=== PATIENT | male | born 2000 | race African-American/Black ===

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

== ENCOUNTER 2020-05-09 20:06 | Emergency (ER) | payer SELFPAY ==
[~2020-05-09] VITALS: Ht 177.8 cm; Wt 109.0 kg
[2020-05-09 22:03] LABS: BASOPHILS % 0.6 % (0.0-2.0); EOSINOPHILS % 4.3 % (0.0-5.0); HEMATOCRIT. 44.8 % (42.0-52.0); HEMOGLOBIN. 14.7 g/dL (14.0-18.0); LYMPHOCYTES % 34.2 % (20.0-50.0); MEAN CORPUSCULAR HEMOGLOBIN 27.8 pg (28.0-32.0); MEAN CORPUSCULAR VOLUME 84.5 fL (80.0-94.0); MEAN PLATELET VOLUME 9.5 fl (7.4-10.4); MONOCYTES % 5.6 % (2.0-8.0); NEUTROPHILS % 55.3 % (40.0-76.0); PLATELET 224 x1000/uL (130-400); RED CELL DISTRIBUTION WIDTH 13.6 % (11.6-14.6)
[2020-05-09 22:08] LABS: CHLORIDE 108 mEq/L (98-107)
[2020-05-09 22:14] LABS: CLARITY URINE CLEAR (CLEAR); COLOR URINE YELLOW (YELLOW); KETONES URINE TRACE (NEGATIVE); LEUKOCYTE ESTERASE URINE NEGATIVE (NEGATIVE); NITRITE URINE NEGATIVE (NEGATIVE); OCCULT BLOOD URINE NEGATIVE (NEGATIVE); PROTEIN URINE NEGATIVE (NEGATIVE); SPECIFIC GRAVITY URINE 1.034 (1.005-1.030)
[2020-05-09] MEDS ORDERED: MORPHINE SULFATE 4 MG/ML CPJ (NOT FOR IM USE) IV STA (22:54)
[2020-05-09] MEDS ORDERED: ONDANSETRON HCL 4MG/2ML INJ IV STA (22:54)
[2020-05-09] MEDS ORDERED: SODIUM CHLORIDE 0.9% 1,000 ML IV ONE (23:00)
[2020-05-09 23:13] LABS: INR 1.1; PARTIAL THROMBOPLASTIN TIME 25.2 sec (23.4-31.0); PROTHROMBIN TIME 11.4 sec (9.6-11.0)
[2020-05-10] MEDS ORDERED: HYDR-4001 MT (00:47)
[2020-05-10] MEDS ORDERED: IBUP-2028 MT (00:47)
[2020-05-10 01:56] VITALS: BP 118/64
[2020-05-12 08:11] LABS: NEISSERIA GONORRHOEAE NAA Negative (Negative)
== END 2020-05-10 02:02 | disposition home or self-care (01) ==
LOC: ER 20:06
DX: N44.00 Torsion of testis, unspecified (principal); J45.909 Unspecified asthma, uncomplicated; Z91.010 Allergy to peanuts; Z91.013 Allergy to seafood
CPT/HCPCS: 36415; 76870; 80053; 81003; 85025; 85610; 85730; 86850; 86900; 86901; 87491; 87591; 93005; 93976; 96374; 96375; 99285; J2270; J2405; J7030

== ENCOUNTER 2020-12-23 19:19 | Emergency (ER) | payer SELFPAY ==
[~2020-12-23] VITALS: Ht 170.2 cm; Wt 80.0 kg
[~2020-12-23 19:19] MED LIST: HYDR-4001 MT; IBUP-2028 MT
[2020-12-24 00:57] LABS: BASOPHILS % 0.5 % (0.0-2.0); EOSINOPHILS % 0.2 % (0.0-5.0); HEMOGLOBIN. 16.4 g/dL (14.0-18.0); LYMPHOCYTES % 13.7 % (20.0-50.0); MEAN CORPUSCULAR HEMOGLOBIN 28.6 pg (28.0-32.0); MEAN CORPUSCULAR VOLUME 85.5 fL (80.0-94.0); MEAN PLATELET VOLUME 9.7 fl (7.4-10.4); MONOCYTES % 7.7 % (2.0-8.0); NEUTROPHILS % 77.9 % (40.0-76.0); PLATELET 253 x1000/uL (130-400); RED BLOOD CELL COUNT 5.73 mill/uL (4.7-6.1); RED CELL DISTRIBUTION WIDTH 13.4 % (11.6-14.6)
[2020-12-24 01:09] LABS: CHLORIDE 103 mEq/L (98-107)
[2020-12-24] MEDS ORDERED: ONDANSETRON 4MG ODT PO STA (01:45)
[2020-12-24] MEDS ORDERED: DICYCLOMINE 10 MG/5 ML ORAL SYR PO STA (01:45)
[2020-12-24] MEDS ORDERED: MAGNESIUM/ALUMINUM HYDROXIDE/SIMETHICONE 30ML UDC PO STA (01:45)
[2020-12-24 02:13] LABS: CLARITY URINE CLOUDY (CLEAR); COLOR URINE DARK YELLOW (YELLOW); KETONES URINE 2+ (NEGATIVE); LEUKOCYTE ESTERASE URINE NEGATIVE (NEGATIVE); NITRITE URINE NEGATIVE (NEGATIVE); OCCULT BLOOD URINE NEGATIVE (NEGATIVE); PH URINE 5.5 (4.5-8.0); PROTEIN URINE 1+ (NEGATIVE); SPECIFIC GRAVITY URINE 1.037 (1.005-1.030)
[2020-12-24] MEDS ORDERED: ONDANSETRON HCL 4MG/2ML INJ IV STA (02:23)
[2020-12-24] MEDS ORDERED: KETOROLAC 30MG/ML VIAL IV STA (02:23)
[2020-12-24] MEDS ORDERED: SODIUM CHLORIDE 0.9% 1,000 ML IV ONE (02:30)
[2020-12-24 02:35] VITALS: BP 137/82
[2020-12-24] MEDS ORDERED: METOCLOPRAMIDE HCL 10MG/2ML VIAL IV ONE (04:15)
[2020-12-24] MEDS ORDERED: ONDA4TAB5 MT (05:39)
== END 2020-12-24 05:50 | disposition home or self-care (01) ==
LOC: ER 19:19
DX: R10.33 Periumbilical pain (principal); R11.2 Nausea with vomiting, unspecified; Z79.899 Other long term (current) drug therapy; Z91.010 Allergy to peanuts
CPT/HCPCS: 36415; 71045; 74176; 80053; 81003; 83690; 85025; 96361; 96374; 96375; 99285; J1885; J2405; J2765; J7030; Q0162

== ENCOUNTER 2023-03-22 16:47 | Emergency (ER) | payer SELFPAY ==
[~2023-03-22] VITALS: Ht 175.3 cm; Wt 99.0 kg
[~2023-03-22 16:47] MED LIST changes: +ONDA4TAB5 MT
[2023-03-22 16:51] VITALS: O2SAT 100
[2023-03-22 17:28] LABS: CLARITY URINE CLOUDY (CLEAR); COLOR URINE YELLOW (YELLOW); GLUCOSE URINE NEGATIVE (NEGATIVE); KETONES URINE NEGATIVE (NEGATIVE); LEUKOCYTE ESTERASE URINE NEGATIVE (NEGATIVE); NITRITE URINE NEGATIVE (NEGATIVE); OCCULT BLOOD URINE NEGATIVE (NEGATIVE); PH URINE 5.5 (4.5-8.0); PROTEIN URINE NEGATIVE (NEGATIVE); SPECIFIC GRAVITY URINE 1.027 (1.005-1.030)
[2023-03-22 17:48] LABS: RBC URINE NONE SEEN /hpf (0-2); WBC URINE 0-2 /hpf (0-2)
[2023-03-22 17:49] LABS: BACTERIA URINE NONE SEEN; SQUAMOUS EPITHELIAL CELL URINE RARE /lpf (RARE/1+)
[2023-03-22 18:03] LABS: BASOPHILS % 0.3 % (0.0-2.0); EOSINOPHILS % 0.7 % (0.0-5.0); HEMATOCRIT. 44.9 % (42.0-52.0); HEMOGLOBIN. 14.8 g/dL (14.0-18.0); LYMPHOCYTES % 11.5 % (20.0-50.0); MEAN CORPUSCULAR HEMOGLOBIN 29.4 pg (28.0-32.0); MEAN CORPUSCULAR VOLUME 89.1 fL (80.0-94.0); MEAN PLATELET VOLUME 9.8 fl (7.4-10.4); MONOCYTES % 3.3 % (2.0-8.0); NEUTROPHILS % 84.2 % (40.0-76.0); PLATELET 210 x1000/uL (130-400); RED BLOOD CELL COUNT 5.04 mill/uL (4.7-6.1); RED CELL DISTRIBUTION WIDTH 14.8 % (11.6-14.6); WHITE BLOOD COUNT 6.4 x1000/uL (4.5-11.0)
[2023-03-22 18:14] LABS: ALANINE AMINOTRANSFERASE 20 IU/L (10-49); ALBUMIN 4.7 g/dL (3.2-4.8); ASPARTATE AMINOTRANSFERASE 19 IU/L (<34); BILIRUBIN TOTAL 0.4 mg/dL (0.1-1.0); CALCIUM 9.3 mg/dL (8.7-10.4); CARBON DIOXIDE 26 mEq/L (21-32); CHLORIDE 108 mEq/L (98-107); CREATININE 0.7 mg/dL (0.6-1.3); GLUCOSE 82 mg/dL (70-105); POTASSIUM 3.9 mEq/L (3.5-5.1); PROTEIN TOTAL 8.3 g/dL (6.0-8.3); SODIUM 141 mEq/L (136-145); UREA NITROGEN BLOOD 12 mg/dL (9-23)
[2023-03-22] MEDS ORDERED: FAMOTIDINE 20MG/2ML VIAL IV ONE (20:30)
[2023-03-22] MEDS ORDERED: ONDANSETRON HCL 4MG/2ML INJ IV ONE (20:30)
[2023-03-22] MEDS: SODIUM CHLORIDE 0.9% 1,000 ML IV ONE (20:30)
[2023-03-22] MEDS ORDERED: KETOROLAC 30MG/ML VIAL IV STA (20:30)
[2023-03-23 03:03] VITALS: BP 127/79; PULSE 60; RESP 20
[2023-03-23] MEDS: FAMOTIDINE 20MG/2ML VIAL IV NR (03:03)
[2023-03-23] MEDS: ONDANSETRON HCL 4MG/2ML INJ IV NR (03:03)
[2023-03-23] MEDS: KETOROLAC 30MG/ML VIAL IV NR (03:03)
[2023-03-23] MEDS ORDERED: FAMO20TA8 MT (03:27)
[2023-03-23] MEDS ORDERED: ONDA4TAB50 MT (03:27)
[2023-03-23] MEDS ORDERED: ACET-2708 MT (03:27)
== END 2023-03-23 04:04 | disposition home or self-care (01) ==
LOC: ER 16:47
DX: K29.00 Acute gastritis without bleeding (principal); Z91.013 Allergy to seafood; Z91.018 Allergy to other foods; Z88.8 Allergy status to other drugs, medicaments and biological substances
CPT/HCPCS: 99284; 96361; 80053; 81003; 83690; 85025; 36415; 96374; 96375; J7030; J1885; J2405

== ENCOUNTER 2023-03-28 03:56 | Emergency (ER) | payer SELFPAY ==
[~2023-03-28] VITALS: Ht 177.8 cm; Wt 70.0 kg
[~2023-03-28 03:56] MED LIST changes: +ACET-2708 MT; +FAMO20TA8 MT; +ONDA4TAB50 MT
[2023-03-28 03:59] VITALS: BP 156/110; PULSE 51; RESP 16; TEMP 98.5; O2SAT 98
== END 2023-03-28 07:30 | disposition left against medical advice (07) ==
LOC: ER 03:56
DX: R11.2 Nausea with vomiting, unspecified (principal); Z53.21 Procedure and treatment not carried out due to patient leaving prior to being seen by health care provider
CPT/HCPCS: 99281

== ENCOUNTER 2023-11-30 00:14 | Emergency (ER) | payer SELFPAY ==
[~2023-11-30] VITALS: Ht 175.3 cm; Wt 98.0 kg
[2023-11-30 02:22] VITALS: PULSE 106; RESP 20; O2SAT 91
[2023-11-30] MEDS: IPRATROPIUM/ALBUTEROL 0.5-3(2.5)MG/3ML NEB HHN ONE ×2 (02:22→04:25)
[2023-11-30] MEDS: DEXAMETHASONE 10 MG/ML VIAL IM ONE (02:30)
[2023-11-30 04:25] VITALS: PULSE 85; RESP 18; O2SAT 96
[2023-11-30 04:30] VITALS: BP 118/76; PULSE 92; RESP 17; TEMP 36.83628; O2SAT 100
[2023-11-30] MEDS ORDERED: ALBU90AE INH (04:36)
[2023-11-30] MEDS ORDERED: PRED5TAB48 MT (04:36)
== END 2023-11-30 07:15 | disposition home or self-care (01) ==
LOC: ER 00:14
DX: J45.901 Unspecified asthma with (acute) exacerbation (principal); B34.9 Viral infection, unspecified; Z79.899 Other long term (current) drug therapy
CPT/HCPCS: 71045; 94640; 96372; 99283; J1100; Z7610 ×2

== ENCOUNTER 2023-12-18 09:15 | Emergency (ER) | payer MEDICAID ==
[~2023-12-18] VITALS: Ht 172.7 cm; Wt 99.0 kg
[2023-12-18] VITALS (7 sets, daily range): BP systolic 142; BP diastolic 83; PULSE 85–93; RESP 16–20; TEMP 36.22512; O2SAT 95–98
[~2023-12-18 09:15] MED LIST changes: +ALBU90AE INH; +PRED5TAB48 MT
[2023-12-18] MEDS ORDERED: IPRATROPIUM BROMIDE (0.02%) 0.5MG/2.5ML NEB HHN STA (09:56)
[2023-12-18] MEDS ORDERED: DEXAMETHASONE 1MG TABLET PO ONE (10:00)
[2023-12-18] MEDS: ALBUTEROL (0.083%) 2.5MG/3ML NEB HHN SCH (10:23)
[2023-12-18] MEDS: IPRATROPIUM BROMIDE (0.02%) 0.5MG/2.5ML NEB HHN NR (10:23)
[2023-12-18] MEDS ORDERED: ALBU90AE INH (11:45)
[2023-12-18] MEDS: ALBUTEROL (0.5%) 2.5MG/0.5ML NEB HHN ONE (13:26)
[2023-12-18] MEDS: DEXAMETHASONE 4MG TABLET PO NR (15:09)
== END 2023-12-18 15:14 | disposition home or self-care (01) ==
LOC: ER 09:31
DX: J45.901 Unspecified asthma with (acute) exacerbation (principal); Z79.899 Other long term (current) drug therapy
CPT/HCPCS: 71045; 94640; 99291; J8540; Z7610

== ENCOUNTER 2024-03-06 06:44 | Emergency (ER) | payer MEDICAID ==
[~2024-03-06] VITALS: Ht 175.3 cm; Wt 95.0 kg
[2024-03-06 06:52] VITALS: O2SAT 93
[2024-03-06 06:55] VITALS: BP 160/100; TEMP 98.2
[2024-03-06] MEDS ORDERED: METH4TAB95 MT (08:25)
[2024-03-06] MEDS ORDERED: ALBU90AE INH (08:25)
[2024-03-06 08:49] VITALS: PULSE 78; RESP 20; O2SAT 96
[2024-03-06] MEDS: IPRATROPIUM BROMIDE (0.02%) 0.5MG/2.5ML NEB HHN STA (08:49)
[2024-03-06] MEDS: ALBUTEROL (0.083%) 2.5MG/3ML NEB HHN STA (08:49)
[2024-03-06] MEDS: DEXAMETHASONE 4MG/ML 1ML VIAL IM ONE (08:51)
[2024-03-06 09:50] VITALS: PULSE 80; RESP 20; O2SAT 100
[2024-03-06] MEDS: IPRATROPIUM/ALBUTEROL 0.5-3(2.5)MG/3ML NEB HHN ONE (09:50)
== END 2024-03-06 10:42 | disposition home or self-care (01) ==
LOC: ER 06:44
DX: J45.901 Unspecified asthma with (acute) exacerbation (principal)
CPT/HCPCS: 71045; 94640; 94070; 96372; 99284; J1100; Z7610 ×4

== ENCOUNTER 2024-04-10 04:20 | Emergency (ER) | payer SELFPAY ==
[~2024-04-10] VITALS: Ht 177.8 cm; Wt 63.0 kg
[~2024-04-10 04:20] MED LIST changes: +METH4TAB95 MT
[2024-04-10] MEDS ORDERED: IPRATROPIUM BROMIDE (0.02%) 0.5MG/2.5ML NEB HHN SCH (06:18)
[2024-04-10] MEDS: PREDNISONE 20MG TABLET PO NR (06:18)
[2024-04-10 07:10] VITALS: PULSE 85; RESP 24; O2SAT 96
[2024-04-10] MEDS: ALBUTEROL (0.083%) 2.5MG/3ML NEB HHN SCH (07:10)
[2024-04-10] MEDS: IPRATROPIUM BROMIDE (0.02%) 0.5MG/2.5ML NEB HHN NR (07:22)
[2024-04-10] MEDS ORDERED: P50 MT (07:53)
[2024-04-10] MEDS ORDERED: ALBU90AE INH (07:53)
[2024-04-10 08:43] VITALS: BP 133/78; PULSE 104; RESP 18; TEMP 37.1; O2SAT 98
== END 2024-04-10 08:49 | disposition home or self-care (01) ==
LOC: ER 04:20
DX: J45.901 Unspecified asthma with (acute) exacerbation (principal); Z91.010 Allergy to peanuts; Z91.013 Allergy to seafood; Z79.899 Other long term (current) drug therapy
CPT/HCPCS: 71045; 94644; 99285; J7512; Z7610; 94640

== ENCOUNTER 2024-08-15 20:39 | Emergency (ER) | payer MEDICAID ==
[~2024-08-15] VITALS: Ht 182.9 cm; Wt 104.0 kg
[~2024-08-15 20:39] MED LIST changes: +P50 MT
[2024-08-15 22:25] VITALS: PULSE 78; RESP 18; O2SAT 97
[2024-08-15] MEDS: IPRATROPIUM/ALBUTEROL 0.5-3(2.5)MG/3ML NEB HHN ONE (22:30)
[2024-08-15] MEDS: METHYLPREDNISOLONE SOD SUCC 125MG/2ML (ACT-O-VIAL) IV ONE (22:41)
[2024-08-15] MEDS ORDERED: ALBU90AE INH (23:02)
[2024-08-15] MEDS ORDERED: P50 MT (23:02)
[2024-08-15 23:20] VITALS: BP 111/86; PULSE 77; RESP 18; TEMP 36.7; O2SAT 99
== END 2024-08-15 23:33 | disposition home or self-care (01) ==
LOC: ER 20:39
DX: J45.901 Unspecified asthma with (acute) exacerbation (principal); F17.210 Nicotine dependence, cigarettes, uncomplicated; F12.90 Cannabis use, unspecified, uncomplicated; Z79.899 Other long term (current) drug therapy
CPT/HCPCS: 94640; 96374; 99283; J2919; Z7610 ×3; 94664; A4606